=== PATIENT | female | born 1995 | race Caucasian/White ===

== ENCOUNTER 2017-08-26 22:33 | Emergency (ER) | payer MEDICAID ==
[2015-09-03 19:23] VITALS: BMI 26.5
[~2017-08-26 22:33] MED LIST: IBUPROFEN600 MG PO; PERCOCET 5-3251 TAB PO; PRENATAL COMPLE1 TAB PO
== END 2017-08-26 23:47 | disposition home or self-care (01) ==
LOC: D.ER 22:33
DX: O26.892 Other specified pregnancy related conditions, second trimester (principal); Z3A.16 16 weeks gestation of pregnancy; R51 Headache; V43.52XA Car driver injured in collision with other type car in traffic accident, initial encounter; Y93.89 Activity, other specified; Y92.410 Unspecified street and highway as the place of occurrence of the external cause

== ENCOUNTER 2018-01-13 09:36 | Inpatient (IN) | payer MEDICAID ==
[~2018-01-13] VITALS: Ht 167.6 cm; Wt 80.3 kg
--- NOTE | ~2018-01-13 | DS ---
PATIENT:CHENTE LAKE :89 MEDICAL RECORD: [id number] DISCHARGE SUMMARY ADMISSION DATE: 01/13/18 DISCHARGE DATE: 01/15/18 DATE OF ADMISSION: 01/13/2018. DATE OF DISCHARGE: 01/15/2018. ADMISSION DIAGNOSIS: Labor at near term. DISCHARGE DIAGNOSIS: labor. PROCEDURE: Vaginal delivery. ATTENDING: Tyrone Parra MD HISTORY OF PRESENT ILLNESS: See the H&P in the chart. SUMMARY OF HOSPITALIZATION: The patient was admitted to the hospital and labored without difficulty. At the time of discharge, she reports minimal lochia and was intermittent mild to moderate cramping. The patient will receive Tylenol #3 for her pain. The patient has been given standard precautions and will follow up in 6 weeks. The patient desires Mirena for control. TRANSINT:[id number] Voice Confirmation ID: [id number] DOCUMENT ID: [id number] YTRONE PARRA MD at [id number] CC: [id number] DICTATION DATE: 01/15/18 0725 PRODUCE SPECIALIST: 01/15/18 1259 DIS IN 01/15/18 [id number] [place] [address]
--- NOTE | ~2018-01-13 | OP ---
PATIENT NAME: CHENTE LAKE MEDICAL RECORD: [id number] :89 LOCATION:[id number] ADMISSION DATE:01/13/18 SURGEON: REYES PARRA MD DATE OF OPERATION: 01/13/2018 DELIVERY NOTE PRE-DELIVERY DIAGNOSIS: Active labor at 36 weeks' gestation. POST-DELIVERY DIAGNOSIS: Active labor at 36 weeks' gestation. PROCEDURE: Vaginal delivery. ATTENDING: Reyes Parra MD TELEGRAPH SERVICE CLERK: Moody Birch. ANESTHETIC: Continuous lumbar epidural. FINDINGS: Viable male , MARVIN presentation, Apgars 8 and 9, weight 3060 grams. No laceration. Placenta spontaneous and intact. ESTIMATED BLOOD LOSS: 300 cc. DISPOSITION: Mother and infant recovered in the room. TRANSINT:[id number] Voice Confirmation ID: [id number] DOCUMENT ID: [id number] REYES PARRA MD at 0847 CC: [id number] DICTATION DATE: 01/13/18 1336 SPREAD CUTTER: 01/13/18 1343 ADM IN [id number] [place] [address]
[2018-01-13 10:15] LABS: HEMATOCRIT 31.3 % (36.0-48.0); HEMOGLOBIN 10.3 g/dL (12-16); MCH 31.1 pg (26.0-34.0); MCHC 32.9 g/dL (31.0-37.0); MCV 94.6 fL (80.0-100.0); MEAN PLATELET VOLUME 9.5 fL (7.4-10.4); RBC 3.31 10x6/uL (4.00-5.40); RDW 14.9 % (11.5-14.5); WBC 9.1 10x3/uL (4.8-10.8)
[2018-01-13 10:16] LABS: APPEARANCE CLOUDY (CLEAR); BILIRUBIN NEGATIVE (NEGATIVE); COLOR YELLOW (YELLOW); GLUCOSE NEGATIVE (NEGATIVE); KETONE NEGATIVE (NEGATIVE); NITRITE NEGATIVE (NEGATIVE); PROTEIN NEGATIVE (NEGATIVE); SPECIFIC GRAVITY 1.015 (1.005-1.020); UROBILINOGEN NORMAL (NORMAL)
[2018-01-13] MEDS ORDERED: VITAMIN B-12500 MC1 PO (10:22)
[2018-01-13 10:23] VITALS: BP 120/67; Ht 167.6 cm; Wt 80.3 kg
[2018-01-13 10:55] LABS: RED CELLS - URINE 0-5 /hpf (0-5)
[2018-01-13 10:56] LABS: BACTERIA MODERATE /hpf (NONE SEEN); EPITHELIAL CELLS 0-5 /hpf (0-5)
[2018-01-13 20:00] VITALS: BP 104/63
[2018-01-14 06:54] LABS: HEMATOCRIT 29.1 % (36.0-48.0); HEMOGLOBIN 9.6 g/dL (12-16); MCH 31.1 pg (26.0-34.0); MCV 94.2 fL (80.0-100.0); MEAN PLATELET VOLUME 9.7 fL (7.4-10.4); RBC 3.09 10x6/uL (4.00-5.40); RDW 15.2 % (11.5-14.5); WBC 9.7 10x3/uL (4.8-10.8)
[2018-01-14 07:48] VITALS: BP 96/58
[2018-01-14 16:04] VITALS: BP 104/60
[2018-01-14 19:23] VITALS: BP 104/63
[2018-01-15 07:20] VITALS: BP 100/56
[2018-01-16 03:11] LABS: RAPID PLASMA REAGIN Non Reactive (Non Reactive)
== END 2018-01-15 16:00 | disposition home or self-care (01) | DRG 775 ==
LOC: D.LDO 09:36 → D.LD 09:42
PROVIDERS: Obstetrics & Gynecology
PROC: 10E0XZZ Delivery of Products of Conception, External Approach (ICD-10-PCS; principal; 2018-01-13)
DX: O99.824 Streptococcus B carrier state complicating childbirth (principal); Z3A.36 36 weeks gestation of pregnancy; Z37.0 Single live birth; O99.334 Smoking (tobacco) complicating childbirth; O60.14X0 Preterm labor third trimester with preterm delivery third trimester, not applicable or unspecified

== ENCOUNTER 2018-12-06 | Emergency (ER) | payer SELFPAY ==
[~2018-12-06] VITALS: Ht 167.6 cm; Wt 68.2 kg
[~2018-12-06] MED LIST changes: +VITAMIN B-12500 MC1 PO
[2018-12-06 00:07] VITALS: Ht 167.6 cm; Wt 68.2 kg
[2018-12-06 00:55] LABS: HCG URINE NEGATIVE (NEGATIVE)
[2018-12-06 00:59] LABS: APPEARANCE CLOUDY (CLEAR); BILIRUBIN NEGATIVE (NEGATIVE); COLOR YELLOW (YELLOW); GLUCOSE NEGATIVE (NEGATIVE); KETONE NEGATIVE (NEGATIVE); NITRITE NEGATIVE (NEGATIVE); PROTEIN 1+ mg/dL (NEGATIVE); UROBILINOGEN NORMAL (NORMAL)
[2018-12-06 01:00] LABS: BACTERIA MODERATE /hpf (NONE SEEN); EPITHELIAL CELLS 0-5 /hpf (0-5)
[2018-12-06 01:07] LABS: BASOPHILS 0.4 % (0-2); HEMATOCRIT 34.3 % (36.0-48.0); HEMOGLOBIN 11.1 g/dL (12-16); LYMPHOCYTES 36.5 % (15-50); MCH 28.3 pg (26.0-34.0); MCHC 32.4 g/dL (31.0-37.0); MCV 87.5 fL (80.0-100.0); MEAN PLATELET VOLUME 9.5 fL (7.4-10.4); MONOCYTES 8.5 % (2-11); NEUTROPHILS 50.6 % (40-80); RBC 3.92 10x6/uL (4.00-5.40); RDW 16.9 % (11.5-14.5); WBC 5.5 10x3/uL (4.8-10.8)
[2018-12-06 01:09] LABS: PLATELET COUNT 206 10x3/uL (130-400)
[2018-12-06 01:25] LABS: ALBUMIN 3.5 g/dL (3.4-5.0); ALKALINE PHOSPHATASE 58 U/L (46-116); ALT (SGPT) 21 U/L (10-68); BILIRUBIN - TOTAL 0.19 mg/dL (0.2-1.3); CALC OSMOLALITY 275 mosm/kg (275-300); CALCIUM 8.1 mg/dL (8.5-10.1); CARBON DIOXIDE 25.6 mmol/L (21.0-32.0); CHLORIDE - SERUM 103 mmol/L (98-107); CREATININE - SERUM 0.5 mg/dL (0.6-1.3); GLUCOSE 93 mg/dL (74-106); POTASSIUM - SERUM 3.5 mmol/L (3.5-5.1); SODIUM 139 mmol/L (136-145); UREA NITROGEN 8 mg/dL (7-18); eGFR NON AFRICAN AMERICAN > 90 mL/min (90-120)
[2018-12-06 01:31] LABS: AMYLASE - SERUM 50 U/L (25-115); HCG - QUANTITATIVE (MATERNAL) 11 mIU/mL; LIPASE 118 U/L (73-393)
[2018-12-06 01:32] LABS: TROPONIN-I < 0.017 ng/mL (0.000-0.060)
[2018-12-06] MEDS ORDERED: KEFLEX500 MG PO (01:38)
[2018-12-06] MEDS ORDERED: MACROBID100 MG PO (01:38)
[2018-12-06 02:03] VITALS: BP 135/74
== END 2018-12-06 02:51 | disposition home or self-care (01) ==
LOC: D.ER
PROVIDERS: Family Medicine
DX: N39.0 Urinary tract infection, site not specified (principal); R10.32 Left lower quadrant pain

== ENCOUNTER 2019-05-19 22:53 | Emergency (ER) | payer SELFPAY ==
[~2019-05-19] VITALS: Ht 167.6 cm; Wt 66.8 kg
[~2019-05-19 22:53] MED LIST changes: +KEFLEX500 MG PO; +MACROBID100 MG PO
[2019-05-19 23:08] VITALS: Ht 167.6 cm; Wt 66.8 kg
[2019-05-20 00:13] VITALS: BP 97/57
== END 2019-05-20 00:13 | disposition home or self-care (01) ==
LOC: D.ER 22:53
DX: J02.0 Streptococcal pharyngitis (principal)